=== PATIENT | male | born 1980 | race Caucasian/White ===

== ENCOUNTER 2017-03-27 02:47 | Emergency (ER) | payer OTHER ==
[2017-03-27 02:55] VITALS: BP 148/84; PULSE 105; RESP 20; TEMP 98.3
[2017-03-27] MEDS ORDERED: DIPH,PERTUS(ACELL)TETVAC-LF 0.5 ML VIAL IM ONE (02:57)
--- NOTE | 2017-03-27 03:07 | ED ---
Wound/Laceration HPI - General Chief Complaint: Wound/Laceration Stated Complaint: Rt hand laceration Time Seen by Provider: 03/27/17 02:57 Source: police, RN notes reviewed, old records reviewed Mode of arrival: ambulatory Limitations: no limitations - History of Present Illness Initial Comments: This is a 36-year-old male with chief complaint of right hand laceration. Patient was brought into the emergency department via police escort. Patient was upset and punched back of his trailer. He reports that he is not up-to- date on the tetanus shot. He states he has full range motion of the hand and wrist. Denies any significant pain with range of motion. Patient reports that he is right-handed. Patient is pending custodial clearance. - Related Data Home Medications Medication Instructions Recorded Confirmed No Known Home Medications [No 03/27/17 03/27/17 Known Home Medications] Allergies Allergy/AdvReac Type Severity Reaction Status Date / Time Penicillins Allergy Rash/Hives Verified 03/27/17 02:55 Review of Systems ROS Statement: Those systems with pertinent positive or pertinent negative responses have been documented in the HPI. ROS Other: All systems not noted in ROS Statement are negative. Past Medical History Past Medical History: No Reported History History of Any Multi-Drug Resistant Organisms: None Reported Past Surgical History: No Surgical Hx Reported Past Psychological History: No Psychological Hx Reported Smoking Status: Never smoker Past Alcohol Use History: Occasional Past Drug Use History: None Reported General Exam - General Exam Comments Initial Comments: Well-appearing 36-year-old male. No distress. Limitations: no limitations General appearance: alert, in no apparent distress Head exam: Present: atraumatic, normocephalic, normal inspection Eye exam: Present: normal appearance, PERRL, EOMI. Absent: scleral icterus, conjunctival injection, periorbital swelling ENT exam: Present: normal exam, mucous membranes moist Neck exam: Present: normal inspection. Absent: tenderness, meningismus, lymphadenopathy Respiratory exam: Present: normal lung sounds bilaterally. Absent: respiratory distress, wheezes, rales, rhonchi, stridor Cardiovascular Exam: Present: regular rate, normal rhythm, normal heart sounds. Absent: systolic murmur, diastolic murmur, rubs, gallop, clicks GI/Abdominal exam: Present: soft, normal bowel sounds. Absent: distended, tenderness, guarding, rebound, rigid Extremities exam: Present: normal inspection, full ROM, normal capillary refill. Absent: tenderness, pedal edema, joint swelling, calf tenderness Back exam: Present: normal inspection Neurological exam: Present: alert, oriented X3, CN II-XII intact Psychiatric exam: Present: normal affect, normal mood Skin exam: Present: warm, dry, intact, normal color. Absent: rash Course Vital Signs 03/27/17 02:49 Temperature 98.3 F Pulse Rate 105 H Respiratory 20 Rate Blood Pressure 148/84 O2 Sat by Pulse 96 Oximetry Procedures - Laceration Laceration #1 Site: hand (right ) Size (cm): 5 Description: flap Depth: simple, single layer Sedation/Analgesia: midazolam Anesthetic Used: benzocaine 0.25% Anesthesia Technique: local infiltration Amount (mls): 6 Pre-repair: wound explored, irrigated extensively Size of Sutures: 5-0 Number of Sutures: 5 Technique: simple, interrupted Patient Tolerated Procedure: well, no complications Medical Decision Making - Medical Decision Making This is a 36-year-old male with chief complaint of right hand laceration. Patient was brought into the emergency department via police escort. Patient was upset and punched back of his trailer. He reports that he is not up-to- date on the tetanus shot. He states he has full range motion of the hand and wrist. Xray negative for fracture and no foreign body. Wound irrigated, and well approximated with 5 sutures. Patient given wound dressing. Updated on tetanus. Patient advised to monitor for infection and return parameters discussed. Patient agrees to treatment plan and will comply. Patient was medically clear for dario.. Disposition Clinical Impression: Laceration of right hand Disposition: HOME SELF-CARE Condition: Good Instructions: Laceration (ED), Care For Your Stitches (ED) Additional Instructions: Please return to the emergency room in 8-10 days to have sutures removed. Please leave wound covered for the first 24-48 hours and then leave open to air after that time. Please use clean soap and water to clean the suture area to prevent scabbing over the top of your sutures. Please watch for any signs of infection which may include but not limited to increased pain, swelling, redness , fever or chills. Please return to the emergency room if any signs of infection do occur. Please return to the emergency room for any other concerns or complications. Referrals: None,Stated [Primary Care Provider] - 1-2 days Time of Disposition: 03:33
[2017-03-27] MEDS ORDERED: TOPICAL SKIN ADHESIVE 1 EACH AMP TOPICAL ONE (03:27)
--- NOTE | 2017-03-27 03:32 | XR ---
EXAM: XR Right Hand Complete, 3 or More Views CLINICAL HISTORY: Reason: Pain TECHNIQUE: Frontal, lateral and oblique views of the right hand. COMPARISON: No relevant prior studies available. FINDINGS: Bones/joints: No acute fracture or malalignment. Tiny round calcific density adjacent to the tuft of the distal phalanx of the second finger is indeterminate. Incidental note is made of spade-shaped angelica of the distal phalanges which may be a congenital variant. Soft tissues: Unremarkable. No radiopaque foreign body. IMPRESSION: No acute fracture or malalignment.
== END 2017-03-27 03:46 | disposition home or self-care (01) ==
LOC: EC 02:47
DX: S61.411A Laceration without foreign body of right hand, initial encounter (principal); Z23 Encounter for immunization; Z88.0 Allergy status to penicillin; W22.09XA Striking against other stationary object, initial encounter
CPT/HCPCS: 12002; 90471; 90715; 99283